=== PATIENT | female | born 2000 ===

== ENCOUNTER 2022-01-26 18:54 | Emergency (ER) | payer SELFPAY | END 2022-01-27 10:04 | disposition left against medical advice (07) | LOC: ED 18:54 | DX: M25.531 Pain in right wrist (principal); Z53.21 Procedure and treatment not carried out due to patient leaving prior to being seen by health care provider ==

== ENCOUNTER 2022-01-30 17:31 | Emergency (ER) | payer SELFPAY | END 2022-01-31 18:58 | disposition left against medical advice (07) | LOC: ED 17:31 | DX: M25.531 Pain in right wrist (principal); Z53.21 Procedure and treatment not carried out due to patient leaving prior to being seen by health care provider ==